=== PATIENT | male | born 1970 | race Caucasian/White ===

== ENCOUNTER 2018-11-25 16:29 | Inpatient (IN) | payer BC, OTHER ==
[~2018-11-25] VITALS: Ht 188 cm; Wt 80.0 kg
[2018-11-25] VITALS (9 sets, daily range): BP systolic 134–158; BP diastolic 90–107
[~2018-11-25 16:29] MED LIST: NO HOME MEDS; aspirin 81mg tab.chew ONE; heparin 10,000 units/1 ML INJ ONE; heparin, porcine-25,000 units/D5-250ml premix IV ONE; nitroGLYCERIN 0.4mg SUBLingual tab SL ONE; nitroGLYCERIN in D5W 50mg/250ml (Tridil) infusion IV ONE
[2018-11-25] MEDS ORDERED: morphine 4 MG/ML inj SYRINge ONE (16:42)
[2018-11-25] MEDS ORDERED: morphine 4 MG/ML inj SYRINge IV ONE ×2 (16:45→17:10)
[2018-11-25] MEDS ORDERED: nitroGLYCERIN-Tridil 50MG/D5W 250 ML IV PRN (16:51)
[2018-11-25] MEDS ORDERED: heparin 25,000 UNIT/250ml bag 250 ML IV SCH (16:51)
[2018-11-25] MEDS ORDERED: aspirin 325mg tablet PO ONE (16:55)
[2018-11-25] MEDS ORDERED: nitroGLYCERIN 0.4mg SUBLingual tab SL PRN ×2 (16:55→18:30)
[2018-11-25] MEDS ORDERED: aspirin 81mg tab.chew PO ONE (16:55)
[2018-11-25] MEDS ORDERED: heparin 10,000 units/1 ML INJ IV PRN (16:55)
[2018-11-25] MEDS ORDERED: heparin 10,000 units/1 ML INJ IV ONE ×2 (16:55→17:05)
[2018-11-25 16:59] LABS: BASOPHILS % (AUTO) 0.3 % (0-1); EOSINOPHILS # (AUTO) 0.8 X10'3 (0-0.9); EOSINOPHILS % (AUTO) 8.2 % (0-6); HEMATOCRIT 46.5 % (42.0-52.0); HEMOGLOBIN 15.7 g/dl (14.0-17.9); LYMPHOCYTES # (AUTO) 4.3 X10'3 (1.1-4.8); LYMPHOCYTES % (AUTO) 44.3 % (21-51); MEAN CORPUSCULAR HEMOGLOBIN 31.5 PG (27.0-31.0); MEAN CORPUSCULAR HGB CONC 33.8 g/dL (33.0-36.5); MEAN CORPUSCULAR VOLUME 93.2 FL (78-98); MONOCYTES # (AUTO) 0.7 X10'3 (0-0.9); MONOCYTES % (AUTO) 7.5 % (2-12); NEUTROPHILS # (AUTO) 3.8 X10'3 (1.8-7.7); NEUTROPHILS % (AUTO) 39.7 % (42-75); PLATELET COUNT 293 X10'3 (140-440); RED CELL DISTRIBUTION WIDTH 12.4 % (11.5-14.5); WHITE BLOOD COUNT 9.7 X10'3 (4.5-11.0)
[2018-11-25 17:05] LABS: ALANINE AMINOTRANSFERASE 35 U/L (12-78); ALBUMIN 3.9 G/DL (3.4-5.0); ALBUMIN/GLOBULIN RATIO 1.1 (1.1-1.5); ALKALINE PHOSPHATASE 57 IU/L (46-116); ANION GAP 13 (8-16); ASPARTATE AMINO TRANSFERASE 16 U/L (10-37); BILIRUBIN,TOTAL 0.3 MG/DL (0.1-1.0); BLOOD UREA NITROGEN 24 MG/DL (7-18); BUN/CREATININE RATIO 17.1 (5.4-32.0); CALCIUM 8.9 MG/DL (8.5-10.1); CHLORIDE 108 MMOL/L (99-107); GLUCOSE 133 MG/DL (70-104); POTASSIUM 3.2 MMOL/L (3.5-5.1); SODIUM 145 MMOL/L (135-145); TOTAL CARBON DIOXIDE 23.7 MMOL/L (24-32); TOTAL PROTEIN 7.4 G/DL (6.4-8.2); eGFR 54 ML/MIN
[2018-11-25] MEDS ORDERED: iohexol 350 MG/1 ML 200ml bottle ONE (17:07)
[2018-11-25] MEDS ORDERED: heparin 1,000unit/ml 10ml vial 10 ML ONE (17:07)
[2018-11-25] MEDS ORDERED: fentaNYL/PF 50MCG/1 ML 2ML syringe ONE (17:07)
[2018-11-25] MEDS ORDERED: heparin 1,000 UNITS/NS 500ml 500 ML ONE (17:07)
[2018-11-25] MEDS ORDERED: midazolam 2 mg/2 ml injection ONE (17:07)
[2018-11-25 17:10] LABS: PARTIAL THROMBOPLASTIN TIME 21 SECONDS (22-32)
--- NOTE | 2018-11-25 17:16 | NUR ---
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
[2018-11-25] MEDS ORDERED: LIDOcaine 1% (10mg/ml)w/preservative injection 20ml MDV ONE (17:24)
[2018-11-25] MEDS ORDERED: ticagrelor 90mg tablet ONE (17:48)
--- NOTE | 2018-11-25 17:50 | NUR ---
Received report from Caleb from rags laborer. Patient is reported to come into the ED with 10/10 chest pain. Patient was take to the recyclable products sorter quickly and stent place to the LAD, which was said to be 100% occluded. A stent was placed and pt was said to have 0/[address]
--- NOTE | 2018-11-25 18:00 | NUR ---
Patient in room MED 308. I have received report from NI Belle and had the opportunity to ask questions and assume patient care.
--- NOTE | 2018-11-25 18:00 | NUR ---
Patient arrived to the floor at 1800. Got patient settled and reported off to NI Beltran. Checked right groin and peripheral pulses present. Groin is appropriate, no hematoma, no bruising and dressing is CDI. Completed this check with NI Beltran. Patient c/o 10/10 pain to the chest and given Monroe 10-325mg po and serax.
[2018-11-25] MEDS ORDERED: ondansetron/PF 4mg/2ml inj IV PRN (18:30)
[2018-11-25] MEDS ORDERED: OXAZEpam 15mg capsule PO PRN (18:30)
[2018-11-25] MEDS ORDERED: HYDROcodone/acetaminophen 5mg/325mg tablet PO PRN (18:30)
[2018-11-25] MEDS ORDERED: proCHLORperazine 10 MG/2 ml inj IV PRN (18:30)
--- NOTE | 2018-11-25 18:30 | NUR ---
Problems reprioritized. Patient report given, questions answered & plan of care reviewed with NI Beltran.
[2018-11-25] MEDS ORDERED: atorvastatin 20mg tablet PO ONE (18:35)
[2018-11-25] MEDS ORDERED: furosemide 40mg/4ml inj IV ONE (18:35)
[2018-11-25] MEDS: HYDROcodone/acetaminophen 10/325mg tab PO PRN (18:37)
--- NOTE | 2018-11-25 18:55 | NUR ---
Patient complaining of 10/10 chest pain in left shoulder and neck. Dr. Richard notified. Orders were given at this time.
[2018-11-25] MEDS ORDERED: temazepam 15mg capsule PO PRN (19:00)
[2018-11-25] MEDS ORDERED: furosemide 40mg tablet PO ONE (19:30)
--- NOTE | 2018-11-25 19:30 | NUR ---
Patient continued to have chest pain. EKG performed. Dr. Richard at the bedside.
[2018-11-25] MEDS ORDERED: potassium CL 10mEq/100ml bag 100 ML IV PRN ×2 (19:40)
[2018-11-25] MEDS ORDERED: potassium Cl 20 mEq SR tablet PO PRN (19:40)
[2018-11-25] MEDS ORDERED: normal saline 1000ml 1,000 ML IV SCH (19:45)
[2018-11-25] MEDS: metoprolol tartrate 25mg tablet PO SCH (20:24)
[2018-11-25] MEDS: atorvastatin 20mg tablet PO SCH (20:25)
[2018-11-25] MEDS: morphine 2 MG/ML inj. syringe IV PRN ×3 (20:27→23:09)
[2018-11-25] MEDS: potassium Cl 20 mEq SR tablet PO PRN (23:10)
[2018-11-26] MEDS: morphine 2 MG/ML inj. syringe IV PRN ×2 (00:11→08:10)
[2018-11-26 02:00] VITALS: BP 132/94
[2018-11-26] MEDS: potassium Cl 20 mEq SR tablet PO PRN ×2 (03:27→14:41)
--- NOTE | 2018-11-26 05:05 | NUR ---
DR. HAMILTON CALLED REGARDING CHANGE IN PATIENT'S RHYTHM. PATIENT WAS IN SR AND THEN WENT INTO A VENTRICULAR RATE IN THE 90'S. HE IS GOING BACK AND FORTH BETWEEN THESE [address] HAMILTON SAID HE WILL BE IN TODAY AND LOOK AT IT.
[2018-11-26 05:53] LABS: ALBUMIN 3.9 G/DL (3.4-5.0); ANION GAP 11 (8-16); BLOOD UREA NITROGEN 18 MG/DL (7-18); BUN/CREATININE RATIO 13.8 (5.4-32.0); CALCIUM 8.8 MG/DL (8.5-10.1); CHLORIDE 104 MMOL/L (99-107); CHOL/HDL RATIO 4.3 (0.00-4.99); CHOLESTEROL 230 MG/DL (0-200); GLUCOSE 154 MG/DL (70-104); HDL CHOLESTEROL 54 MG/DL (35-60); LDL CHOLESTEROL 164 MG/DL (50-100); MAGNESIUM 1.6 MG/DL (1.5-2.4); SODIUM 140 MMOL/L (135-145); TOTAL CARBON DIOXIDE 24.8 MMOL/L (24-32); TRIGLYCERIDES 105 MG/DL (20-135); eGFR 58 ML/MIN
[2018-11-26 06:00] VITALS: BP 150/98
--- NOTE | 2018-11-26 06:00 | NUR ---
Patient in room MED 308. I have received report from NI Beltran and had the opportunity to ask questions and assume patient care.
--- NOTE | 2018-11-26 06:05 | NUR ---
Problems reprioritized. Patient report given, questions answered & plan of care reviewed with NI CEVALLOS.
[2018-11-26] MEDS: K and/or MAG REPLACEMENT MC SCH (08:00)
[2018-11-26 08:03] LABS: BASOPHILS % (AUTO) 0.2 % (0-1); EOSINOPHILS % (AUTO) 0.1 % (0-6); HEMOGLOBIN 16.4 g/dl (14.0-17.9); LYMPHOCYTES # (AUTO) 0.9 X10'3 (1.1-4.8); LYMPHOCYTES % (AUTO) 7.7 % (21-51); MEAN CORPUSCULAR HEMOGLOBIN 31.1 PG (27.0-31.0); MEAN CORPUSCULAR HGB CONC 34.3 g/dL (33.0-36.5); MEAN CORPUSCULAR VOLUME 90.9 FL (78-98); MEAN PLATELET VOLUME 7.8 FL (7.4-10.4); MONOCYTES # (AUTO) 0.7 X10'3 (0-0.9); MONOCYTES % (AUTO) 6.1 % (2-12); NEUTROPHILS # (AUTO) 10.1 X10'3 (1.8-7.7); NEUTROPHILS % (AUTO) 85.9 % (42-75); PLATELET COUNT 239 X10'3 (140-440); RED BLOOD COUNT 5.28 X10'6 (4.70-6.10); RED CELL DISTRIBUTION WIDTH 12.3 % (11.5-14.5); WHITE BLOOD COUNT 11.7 X10'3 (4.5-11.0)
[2018-11-26] MEDS: aspirin 81mg tab.chew PO SCH (08:05)
[2018-11-26] MEDS: metoprolol tartrate 25mg tablet PO SCH ×2 (08:06→20:47)
[2018-11-26] MEDS: ticagrelor 90mg tablet PO SCH ×2 (08:06→20:46)
[2018-11-26] MEDS ORDERED: LISI-600 PO (10:24)
[2018-11-26] MEDS ORDERED: MELO-102 PO (10:29)
[2018-11-26] MEDS ORDERED: TRAZ-219 PO (10:34)
[2018-11-26] MEDS ORDERED: TRAZ-251 PO (10:34)
[2018-11-26 11:00] VITALS: BP 126/93
[2018-11-26 15:00] VITALS: BP 141/97
--- NOTE | 2018-11-26 16:30 | NUR ---
Orientee documentation and med administration: I have reviewed and agree with all interventions, assessments performed and documented by Taryn DAN.
[2018-11-26 18:00] VITALS: BP 119/86
--- NOTE | 2018-11-26 18:18 | NUR ---
Problems reprioritized. Patient report given, questions answered & plan of care reviewed with NI Gramajo and NI Epperson.
[2018-11-26] MEDS: atorvastatin 20mg tablet PO SCH (20:47)
[2018-11-26] MEDS: HYDROcodone/acetaminophen 10/325mg tab PO PRN (20:48)
[2018-11-26] MEDS ORDERED: traZODone 50mg tablet PO SCH (21:00)
[2018-11-26 22:00] VITALS: BP 131/89
[2018-11-27 02:00] VITALS: BP 118/85
[2018-11-27 05:19] LABS: BASOPHILS % (AUTO) 0.1 % (0-1); EOSINOPHILS % (AUTO) 0.3 % (0-6); HEMATOCRIT 44.9 % (42.0-52.0); HEMOGLOBIN 15.6 g/dl (14.0-17.9); LYMPHOCYTES % (AUTO) 8.8 % (21-51); MEAN CORPUSCULAR HEMOGLOBIN 31.6 PG (27.0-31.0); MEAN CORPUSCULAR HGB CONC 34.6 g/dL (33.0-36.5); MEAN CORPUSCULAR VOLUME 91.1 FL (78-98); MONOCYTES % (AUTO) 8.8 % (2-12); NEUTROPHILS # (AUTO) 9.6 X10'3 (1.8-7.7); PLATELET COUNT 210 X10'3 (140-440); RED BLOOD COUNT 4.93 X10'6 (4.70-6.10); RED CELL DISTRIBUTION WIDTH 11.9 % (11.5-14.5); WHITE BLOOD COUNT 11.7 X10'3 (4.5-11.0)
[2018-11-27 05:30] LABS: ALBUMIN 3.5 G/DL (3.4-5.0); ANION GAP 6 (8-16); BLOOD UREA NITROGEN 19 MG/DL (7-18); BUN/CREATININE RATIO 13.1 (5.4-32.0); CALCIUM 9.3 MG/DL (8.5-10.1); CHLORIDE 103 MMOL/L (99-107); CREATININE 1.45 MG/DL (0.60-1.10); GLUCOSE 125 MG/DL (70-104); POTASSIUM 4.1 MMOL/L (3.5-5.1); SODIUM 139 MMOL/L (135-145); TOTAL CARBON DIOXIDE 29.7 MMOL/L (24-32); eGFR 52 ML/MIN
[2018-11-27 06:00] VITALS: BP 124/90
--- NOTE | 2018-11-27 06:15 | NUR ---
Patient in room MED 308. I have received report from NI Gramajo and had the opportunity to ask questions and assume patient care.
--- NOTE | 2018-11-27 06:26 | NUR ---
Gave report to Gena. Answered all the questions.
[2018-11-27] MEDS ORDERED: ASPI-1265 PO (07:02)
[2018-11-27] MEDS ORDERED: TICA90TA PO (07:02)
[2018-11-27] MEDS ORDERED: NITR0.4T51 SL (07:02)
[2018-11-27] MEDS ORDERED: METO25TA6 PO (07:02)
[2018-11-27] MEDS ORDERED: ATOR40TA PO (07:02)
[2018-11-27] MEDS ORDERED: lisinopril 10 MG tablet PO SCH (08:00)
[2018-11-27] MEDS: metoprolol tartrate 25mg tablet PO SCH (08:53)
[2018-11-27] MEDS: aspirin 81mg tab.chew PO SCH (08:53)
[2018-11-27 08:54] VITALS: BP_SYST 123
[2018-11-27] MEDS: ticagrelor 90mg tablet PO SCH (08:54)
[2018-11-27] MEDS: K and/or MAG REPLACEMENT MC SCH (08:55)
--- NOTE | 2018-11-27 10:30 | NUR ---
Patient has been discharged to home with his . All discharge instructions given to patient and his . His took all patient belongings to their car and the room was checked for personal items. The PIV was removed from the left arm by the student nurse, Liv under my supervision. I observed the catheter which was a 20G and it was intact. Patient was taken by wheelchair by the aide. When he left he was alert and oriented and in a stable condition.
== END 2018-11-27 10:35 | disposition home or self-care (01) | DRG 247 ==
LOC: ER 16:29 → MED 3N 18:30
PROVIDERS: ADMIT Internal Medicine Interventional Cardiology; ATTEND Internal Medicine Interventional Cardiology
PROC: 4A023N7 Measurement of Cardiac Sampling and Pressure, Left Heart, Percutaneous Approach (ICD-10-PCS; principal; 2018-11-25)
PROC: 027034Z Dilation of Coronary Artery, One Artery with Drug-eluting Intraluminal Device, Percutaneous Approach (ICD-10-PCS; 2018-11-25)
PROC: B2111ZZ Fluoroscopy of Multiple Coronary Arteries using Low Osmolar Contrast (ICD-10-PCS; 2018-11-25)
PROC: B2151ZZ Fluoroscopy of Left Heart using Low Osmolar Contrast (ICD-10-PCS; 2018-11-25)
DX: I21.02 ST elevation (STEMI) myocardial infarction involving left anterior descending coronary artery (principal); I10 Essential (primary) hypertension; I25.10 Atherosclerotic heart disease of native coronary artery without angina pectoris; Z79.899 Other long term (current) drug therapy
CPT/HCPCS: 93306; 93458; 96365; 96375; 99291; C9606; 36415; 71045; 80048; 80053; 80061; 83735; 84484; 85025; 85610; 85730; 87081; 93005; 99152; 99153; A6258; C1725; C1760; C1769; C1874; G0378; J1644; J2001; J2250; J2270; J3010; J3490; J7030; Q9967

== ENCOUNTER 2023-01-15 11:02 | Emergency (ER) | payer BC, OTHER ==
[~2023-01-15] VITALS: Ht 185.4 cm; Wt 81.8 kg
[~2023-01-15 11:02] MED LIST changes: +ASPI-611 PO; +ATOR20TA66 PO; +EMPA10TA PO; +EVOL140P3 SQ; +METO-384 PO; -NO HOME MEDS; +SACU1TAB7 PO; +SPIR25TA5 PO; -aspirin 81mg tab.chew ONE; -heparin 10,000 units/1 ML INJ ONE; -heparin, porcine-25,000 units/D5-250ml premix IV ONE; -nitroGLYCERIN 0.4mg SUBLingual tab SL ONE; -nitroGLYCERIN in D5W 50mg/250ml (Tridil) infusion IV ONE
[2023-01-15 12:46] LABS: BASOPHILS % (AUTO) 0.4 % (0-1); EOSINOPHILS % (AUTO) 0.4 % (0-6); HEMATOCRIT 31.4 % (42.0-52.0); HEMOGLOBIN 10.4 g/dl (14.0-17.9); LYMPHOCYTES # (AUTO) 0.6 X10'3 (1.1-4.8); LYMPHOCYTES % (AUTO) 14.1 % (21-51); MEAN CORPUSCULAR HEMOGLOBIN 32.1 PG (27.0-31.0); MEAN CORPUSCULAR VOLUME 97.2 FL (78-98); MEAN PLATELET VOLUME 7.7 FL (7.4-10.4); MONOCYTES # (AUTO) 0.3 X10'3 (0-0.9); MONOCYTES % (AUTO) 5.7 % (2-12); NEUTROPHILS # (AUTO) 3.6 X10'3 (1.8-7.7); NEUTROPHILS % (AUTO) 79.4 % (42-75); PLATELET COUNT 371 X10'3 (140-440); RED BLOOD COUNT 3.23 X10'6 (4.70-6.10); WHITE BLOOD COUNT 4.5 X10'3 (4.5-11.0)
[2023-01-15 12:57] LABS: ALANINE AMINOTRANSFERASE 33 U/L (12-78); ALBUMIN 3.7 G/DL (3.4-5.0); ALBUMIN/GLOBULIN RATIO 1.1 (1.1-1.5); ALKALINE PHOSPHATASE 86 IU/L (46-116); ANION GAP 5 (8-16); ASPARTATE AMINO TRANSFERASE 22 U/L (10-37); BILIRUBIN,TOTAL 0.6 MG/DL (0.1-1.0); BLOOD UREA NITROGEN 14 MG/DL (7-18); BUN/CREATININE RATIO 11.8 (10.0-20.0); CALCIUM 9.2 MG/DL (8.5-10.1); CHLORIDE 102 MMOL/L (99-107); CREATININE 1.19 MG/DL (0.60-1.10); GLUCOSE 115 MG/DL (70-104); POTASSIUM 4.7 MMOL/L (3.5-5.1); SODIUM 136 MMOL/L (135-145); TOTAL CARBON DIOXIDE 29.1 MMOL/L (24-32); eCRCL 80 ML/MIN; eGFR 64 ML/MIN
[2023-01-15 13:06] LABS: PRO BRAIN NATRIURETIC PEPTIDE 141 PG/ML (0-125)
[2023-01-15 14:10] VITALS: RESP 18; TEMP 97.9; O2SAT 100
[2023-01-15] MEDS ORDERED: ALPR-624 PO (14:21)
[2023-01-15 14:22] VITALS: BP 122/72; PULSE 69
== END 2023-01-15 14:39 | disposition home or self-care (01) ==
LOC: ER 11:03
DX: F41.9 Anxiety disorder, unspecified (principal); R42 Dizziness and giddiness; I25.2 Old myocardial infarction; Z79.82 Long term (current) use of aspirin; Z79.899 Other long term (current) drug therapy
CPT/HCPCS: 36415; 71045; 80053; 83880; 84484; 85025; 93005; 99285